=== PATIENT | male | born 1970 | race Caucasian/White ===

== ENCOUNTER 2023-06-16 10:45 | Outpatient (AMB) | payer MEDICARE, MEDICAID, SELFPAY ==
[2023-06-16 11:25] VITALS: BMI 21.2
--- NOTE | 2023-06-16 11:25 | MHC.AMNUTRGE ---
Intake VS Expanded 06/16/23 11:25 06/22/23 08:45 Height 5 ft 2 in 5 ft 2 in Weight 116 lb BMI 21.2 Intake Visit Reasons: Dysphagia Allergies honeydew Adverse Reaction (Unknown, Verified 06/21/23 22:23) Rash lactose intolerant Adverse Reaction (Unknown, Uncoded 06/21/23 22:23) Diarrhea HPI Nutrition Presentation Details Pt presents for initial nutrition consult for dysphagia with feedings orally and supplementing via G-Tube. The Pt was referred by Dr. Maine Bajwa from [facility] , in [place]. Pt is accompanied by staff from [facility]. Pt has Cerebral Palsy, congenital quadriplegia, non verbal. Current diet: pureed with pudding thick liquids by teaspoon and tube feeding via G-tube as follow: To receive 250 ml Nutren 1.5 if 75% or less is consumed at each meal if weight is less than 110 lbs If weight is 110 lbs or more, to receive 250 ml Nutren 1.5 if 50% or less consumed at each meal. Staff reports Pt was getting 250 ml Nutren by bolus via g tube overnight however this was discontinued since Pt had reached over 120 lbs as per recommendations from previous provider. Fluids: Pt is getting 50 ml of fluid before and after nutrent 1.5 supplements via G-tube Pt is getting 640 ml water bolus four times daily via Gtube at 12 AM ,8 am, 2 pm, 6 pm Staff reports patient is eating a variety of foods, pureed with pudding thick liquids. Per staff Pt consumption of pureed foods varies from less than 50-75 %, Pt may have 250 ml of nutren 1.5 - 2-4 times a day (calories from Nutren 1.5 range from 750-1500/d). Pt's most recent weight at 116.4 lbs (on 06/11/23), 117 lbs on 06/04/23, no wt available from Mar/Apr (due to scale repairs), wt in the month of February between 129-130 lbs ( see weight chart from [facility] scanned ) Denies vomiting Pt may have loose stools 1-2 times/week. Pt has lactose intolerance Staff reports Pt's Ht is 5'2 NOT 6'2 as recorded in paper record Nutrition Needs Calculation Weight 116 lb ((53 kg)) Estimated kcal needs (kcal/day) 1,325 (as per 25-30 kcal/kg bw ( 2480-0301)) Estimated protein needs (gm/day) 53 (1g/kg bw) Estimated fluid needs (mls/day) 2,160 (as per Hallie Allen) Most Recent Diabetes Results: No Data to Display Assessment & Plan Assessment & Plan (1) Dysphagia: Comment: Pt having pureed with pudding thick liquids and supplementing with Nutren 1.5 via G -tube Code(s): R13.10 - Dysphagia, unspecified Plan: Provide lactose free puree foods and pudding thick liquids by spoons orally as established. Continue recommendations of feedings via G- tube as established: To receive 250 ml bolus of Nutren 1.5 if 75% or less is consumed at each meal if weight is less than 110 lbs If weight is 110 lbs or more, to receive 250 ml Nutren 1.5 if 50% or less consumed at each meal. Fluids: Provide 50 ml water flush before and after feedings via G-tube as established NOTE: Recommend reducing WATER BOLUS as follows: provide 460 ml water bolus 4 times a day CHECK urine frequency and color to assess fluid volume prescribed CHECK RESIDUAL after g tube feeding , delay feeding if gastric residual is greater than 200 ml MONITOR for diarrhea/loose stools. May need to switch to continuos feeding instead of bolus feeding if Pt is having loose stools /diarrhea after feedings or may need to switch to a fiber containing formula if having more than 3 episodes of diarrhea per week. Please Patient Instructions: Provide lactose free puree foods and pudding thick liquids by spoons orally as established. Continue recommendations of feedings via G- tube as established: To receive 250 ml bolus of Nutren 1.5 if 75% or less is consumed at each meal if weight is less than 110 lbs If weight is 110 lbs or more, to receive 250 ml Nutren 1.5 if 50% or less consumed at each meal. Fluids: Provide 50 ml water flush before and after feedings via G-tube as established NOTE: Recommend reducing WATER BOLUS as follows: provide 310 ml water bolus 6 times a day CHECK urine frequency and color to assess fluid volume prescribed and to monitor weight twice a week to assess changes in hydration CHECK RESIDUAL after g tube feeding , delay feeding if gastric residual is greater than 200 ml MONITOR for diarrhea/loose stools. May need to switch to continuos feeding instead of bolus feeding if Pt is having loose stools /diarrhea after feedings via G-Tube or may need to switch to a fiber containing formula if having more than 3 episodes of diarrhea per week. follow up in 2 weeks Coding Level of Care Code Nutr Indiv Intake (03017) Diagnoses Dysphagia R13.10 Time Spent (min) 40
== END 2023-06-16 12:04 | disposition home or self-care (01) ==
PROVIDERS: PCP Family Medicine; Visit Provider Dietitian, Registered
DX: R13.10 Dysphagia, unspecified (principal)

== ENCOUNTER → 2023-06-16 10:45 | Outpatient (BNVA) | payer MEDICARE, MEDICAID, SELFPAY | PROVIDERS: PCP Family Medicine; Visit Provider Dietitian, Registered | DX: R13.10 Dysphagia, unspecified (principal) | CPT/HCPCS: 97802 ==

== ENCOUNTER 2023-07-25 09:35 | Outpatient (AMB) | payer MEDICARE, MEDICAID, SELFPAY ==
--- NOTE | 2023-07-25 09:46 | MHC.AMNUTRGE ---
Intake VS Expanded 07/25/23 10:51 Height 5 ft 2 in Weight 117 lb BMI 21.4 Comment stated weight Intake Visit Reasons: f/u appt regarding Tube feeding Allergies honeydew Adverse Reaction (Unknown, Verified 06/21/23 22:23) Rash lactose intolerant Adverse Reaction (Unknown, Uncoded 06/21/23 22:23) Diarrhea HPI Nutrition Presentation Details Pt presents for MNT f/u for Dysphagia. Pt presents with staff from [facility]. The Pt was referred by Dr. Maine Bajwa from [facility] , in [place]. Pt has Cerebral Palsy, congenital quadriplegia and is non verbal. Pt is getting his feedings orally with pudding thick liquid consistency and supplementing via G-Tube with Nutrent 1.5. Current diet: pureed with pudding thick liquids by teaspoon and tube feeding via G-tube as follow: To receive 250 ml Nutren 1.5 if 75% or less is consumed at each meal if weight is less than 110 lbs If weight is 110 lbs or more, to receive 250 ml Nutren 1.5 if 50% or less consumed at each meal. Staff reports weight was 117 lbs last week, he is maintaining weight. Staff reports Pt consumes 100% of breakfast meal (oatmeal or pancakes or cereal with lactose free milk, lunch consumes >50 % (mashed potatoes, ground meat with gravy, ensure plus) and dinner varies, consumes 25-75% of the meal. Staff reports he is getting ensure plus with thicken added for pudding thick consistency , with each meal Staff reports , Pt has not had diarrhea or loose stools this week, reports he is doing well, no questions or concerns expressed no complains of diarrhea or loose stools, no vomiting Pt is getting ensure plus with fiber three times a day, one with each meal , stafff reports tolerating it well Most Recent Diabetes Results: No Data to Display Assessment & Plan Assessment & Plan (1) Dysphagia: Comment: Pt having pureed with pudding thick liquids and supplementing with Nutren 1.5 via G -tube Code(s): R13.10 - Dysphagia, unspecified Plan: NUTRITION RECOMMENDATION Based on 116 lbs est kcal needs as per 25-30 kcal/kg bw: 6472-2404 est protein needs as per 1 g/kg bw: 53 g est fluid needs as per Tamra - Segar - Ht : 5'2 : 2160 ml/d Provide lactose free puree foods and pudding thick liquids by teaspoons orally as established. Including pureed protein foods - see list of meal ideas Recommend continuing ensure plus with fiber with pudding thick consistency with each meal to promote oral feeding and prevention of weight loss (this provides 48 g protein, 9 g fiber, 1050 delvin) Continue recommendations of feedings via G- tube as established: To receive 250 ml bolus of Nutren 1.5 if 75% or less is consumed at each meal if weight is less than 110 lbs If weight is 110 lbs or more, to receive 250 ml Nutren 1.5 if 50% or less consumed at each meal. Fluids: Provide 50 ml water flush before and after feedings via G-tube as established NOTE: Recommend reducing WATER BOLUS as follows: provide 310 ml water bolus 6 times a day CHECK urine frequency and color to assess fluid volume prescribed CHECK RESIDUAL after g tube feeding , delay feeding if gastric residual is greater than 200 ml MONITOR for diarrhea/loose stools. May need to switch to continuos feeding instead of bolus feeding if Pt is having loose stools /diarrhea after feedings or may need to switch to a fiber containing formula if having more than 3 episodes of diarrhea per week. Recommend prescription for Ensure plus with fiber to have one with each meal with thickened added for pudding thick consistency and provide by teaspoon to promote oral feeding and prevention of weight loss. Each can provides 350 calories, 3 g of fiber, 16 g of protein Patient Instructions: Recommend reducing water bolus to 310 ml 6 times day. Check urine frequency and color of urine to assess fluid volume, monitor weight to assess changes in hydration. Recommend continuing oral nutritional supplements with pudding thick consistency to be provided by teaspoon to promote oral feeding and prevention of weight loss. Recommend prescribing ensure plus with fiber, one with each meal . Coding Level of Care Code Nutr Indiv Subseq (49005) Diagnoses Dysphagia R13.10 Time Spent (min) 30
[2023-07-25 10:51] VITALS: BMI 21.4
== END 2023-07-25 10:24 | disposition home or self-care (01) ==
PROVIDERS: PCP Family Medicine; Visit Provider Dietitian, Registered
DX: R13.10 Dysphagia, unspecified (principal)

== ENCOUNTER → 2023-07-25 09:35 | Outpatient (BNVA) | payer MEDICARE, MEDICAID, SELFPAY | PROVIDERS: PCP Family Medicine; Visit Provider Dietitian, Registered | DX: R13.10 Dysphagia, unspecified (principal); Z93.1 Gastrostomy status; Z71.3 Dietary counseling and surveillance | CPT/HCPCS: 97803 ==

== ENCOUNTER 2023-10-24 09:46 | Outpatient (AMB) | payer MEDICARE, MEDICAID, SELFPAY ==
--- NOTE | 2023-10-24 09:55 | A.OFFVIS_ITS ---
Intake VS Expanded 10/24/23 10:44 Height 5 ft 2 in Weight 117 lb BMI 21.4 Intake Visit Reasons: Dysphagia/CONFIRMED Allergies honeydew Adverse Reaction (Unknown, Verified 06/21/23 22:23) Rash oxycodone Adverse Reaction (Unknown, Verified 10/24/23 10:16) unknown lactose intolerant Adverse Reaction (Unknown, Uncoded 06/21/23 22:23) Diarrhea vitamin A Adverse Reaction (Unknown, Uncoded 10/24/23 10:16) unknown keflex Adverse Reaction (Uncoded 10/24/23 10:16) unknown succinylcholine chloride Adverse Reaction (Uncoded 10/24/23 10:16) Unknown Medication List - Last Reconciled 10/25/[address], LDN ascorbic acid (vitamin C) 500 mg feeding tube TID bisacodyl (Dulcolax (bisacodyl)) 5 mg PO BEDTIME calcium carbonate (Oyster Shell Calcium) 500 mg PO DAILY diltiazem HCl (Cardizem) 120 mg PO TID docusate sodium (Colace) 100 mg PO DAILY ergocalciferol (vitamin D2) 40 mcg feeding tube DAILY Lactobacillus rhamnosus GG (Culturelle) 1 cap PO BID levetiracetam 2,500 mg PO Q12H levothyroxine (Levoxyl) 75 mcg PO DAILY magnesium oxide 400 mg PO DAILY menthol-zinc oxide 0.44-20.6 % (Calmoseptine) 1 appl topical QID PRN methenamine hippurate (Hiprex) 0.5 grams PO TID mineral oil (Fleet Mineral Oil enema) 118 mL AL DAILY PRN multivitamin with minerals 1 cap PO DAILY omeprazole 20 mg PO BID potassium chloride 40 mEq PO BID testosterone cypionate (Depo-Testosterone) 200 mg IM Q4W valproic acid 550 mg PO TID HPI Nutrition Presentation Details Pt presents for MNT follow up for dysphagia with oral feedings and supplementing via G-Tube. The Pt sees Dr. Maine Story from [facility] in [place]. Pt is accompanied by staff from [facility]. Pt hx: Pt has Cerebral Palsy, congenital quadriplegia, non verbal. Current diet: oral feed: pureed with pudding thick liquids by teaspoon and Nutren 1.5 via G-tube as follow: For weight 110 lbs or more, to receive 250 ml Nutren 1.5 if 50% or less consumed at each meal. In addition, Pt is getting 120 ml Nutren 1.5 by bolus via G-Tube overnight positioned at 45 degree angle. Overnights feeds may be discontinued if weight exceeds 120 lbs. Residuals are checked before starting overnight feeds. Feed is hold if residuals is 200 ml or more, residuals are rechecked an hour after. Feed is started when residual is 159 ml or less. Fluids: Pt is getting 50 ml of fluid before and after nutrent 1.5 supplements via G-tube Pt is getting 310 ml water bolus six times daily via Gtube at 12 AM ,8 am, 2 pm, 6 pm, 8pm, 10 pm Staff reports, to her knowledge, Pt has no diarrhea, no vomiting, no skin breakdown. Pt consuming 100% of breakfast (typically pancakes and sausage or hot cereals with lactose free milk , gets ensure plus with breakfast lunch and dinner meal varies, consuming about 25-50% of the meal and supple mented with nutren 1.5 Pt receiving 1/2 can of nutren 1.5 at night Pt on MVI with minerals, vitamin C three times a day, magnesium oxide, klor-con , senna gen via Gtube fax # [phone] (attention Isa ) no labs at the time of this appointment Most Recent Diabetes Results: No Data to Display Assessment & Plan Assessment & Plan (1) Dysphagia: Comment: Pt having pureed with pudding thick liquids and supplementing with Nutren 1.5 via G -tube Code(s): R13.10 - Dysphagia, unspecified Plan: Pt with consistent weight , appears to tolerate nutrition well since last visit, no concerns expressed at this time by staff NUTRITION RECOMMENDATION Based on 116-117 lbs est kcal needs as per 25-30 kcal/kg bw: 1250-2939 est protein needs as per 1 g/kg bw: 53 g est fluid needs as per Tamra - Alejandro - Ht : 5'2 : 2160 ml/d Continue lactose free puree foods and pudding thick liquids by teaspoons orally as established following healthy plate method. Continue supplementing with Nutren 1.5 by bolus via Gtube as established : If weight is 110 lbs or more, to receive 250 ml Nutren 1.5 if 50% or less consumed at each meal. In addition, continue providing 120 to 250ml of Nutren 1.5 ( 1/2 can to 1 can ) by bolus via G-Tube overnight positioned at 45 degree angle to prevent weight loss. Overnights feeds may be discontinued if weight exceeds 120 lbs. Continue checking Residuals before starting overnight feeds. Hold feeds if residual is 200 ml or more, recheck an hour after and re start feed when residual is 160 ml or less. Contact the doctor for further instructions if residuals are greater than 500 ml. Fluids: Provide 50 ml water flush before and after feedings via G-tube as established Continue WATER BOLUS as follows: provide 310 ml water bolus 6 times a day CHECK urine frequency and color to assess fluid volume prescribed and tolerance CHECK RESIDUAL after g tube feeding , delay feeding if gastric residual is greater than 200 ml, re check residuals in one hour and resume feeding when residual is less than 160 ml. Contact the doctor for further instructions if residuals are greater than 500ml. MONITOR for diarrhea/loose stools. May need to switch to continuos feeding instead of bolus feeding if Pt is having loose stools /diarrhea after feedings or may need to consider switching to a fiber containing formula if having more than 3 episodes of diarrhea per week. Continue Ensure plus with fiber once to twice a day to have with a meal or as a snack with thickened added for pudding thick consistency and provide by teaspoon to promote oral feeding and prevention of weight loss. Each can provides 350 calories, 3 g of fiber, 16 g of protein Patient Instructions: Continue as established, see plan above. Call for questions prior to next follow up. Coding Level of Care Code Nutr Indiv Subseq (06985) Diagnoses Dysphagia R13.10 Time Spent (min) 25
[2023-10-24 10:44] VITALS: BMI 21.4
== END 2023-10-24 10:13 | disposition home or self-care (01) ==
PROVIDERS: PCP Family Medicine; Visit Provider Dietitian, Registered
DX: R13.10 Dysphagia, unspecified (principal)

== ENCOUNTER → 2023-10-24 09:46 | Outpatient (BNVA) | payer MEDICARE, MEDICAID, SELFPAY | PROVIDERS: PCP Family Medicine; Visit Provider Dietitian, Registered | DX: R13.10 Dysphagia, unspecified (principal) | CPT/HCPCS: 97803 ==

== ENCOUNTER → 2024-04-24 09:59 | Outpatient (BNVA) | payer MEDICARE, MEDICAID, SELFPAY | PROVIDERS: PCP Family Medicine; Visit Provider Dietitian, Registered ==

== ENCOUNTER 2024-10-25 09:35 | Outpatient (AMB) | payer MEDICARE, MEDICAID, SELFPAY ==
--- NOTE | 2024-10-25 10:04 | MHC.AMNUTRGE ---
VS Expanded 10/25/24 10:29 Height 5 ft 2 in Weight 117 lb BMI 21.4 Intake Visit Reasons: dysphagia Allergies honeydew Adverse Reaction (Unknown, Verified 06/21/23 22:23) Rash oxycodone Adverse Reaction (Unknown, Verified 10/24/23 10:16) unknown lactose intolerant Adverse Reaction (Unknown, Uncoded 06/21/23 22:23) Diarrhea vitamin A Adverse Reaction (Unknown, Uncoded 10/24/23 10:16) unknown keflex Adverse Reaction (Uncoded 10/24/23 10:16) unknown succinylcholine chloride Adverse Reaction (Uncoded 10/24/23 10:16) Unknown Nutrition Presentation Details: Pt presents for MNT follow up for dysphagia with oral feedings and supplementing via G-Tube. The Pt sees Dr. Maine Story from [facility] in [place]. Pt is accompanied by nurse staff, Lakeisha who is here to review nutrition recommendation and hydration recommendations Pt hx: Pt has Cerebral Palsy, congenital quadriplegia, non verbal. Pt's current wt at 117 lbs Current diet: oral feed: pureed with pudding thick liquids by teaspoon and Nutren 1.5 via G-tube as follow: For weight 110 lbs or more, to receive 250 ml Nutren 1.5 if 50% or less consumed at each meal. In addition, Pt is getting 120 ml Nutren 1.5 by bolus via G-Tube overnight positioned at 45 degree angle. Overnights feeds may be discontinued if weight exceeds 120 lbs. PER STAFF, Pt is consuming 75 % of meals ( 3 meals/d) and is also getting Ensure Plus twice a day with meals with 100% consumption of the ensure plus. Pt receiving 1/2 can of nutren 1.5 at night , and may have one can of nutren 1.5 a couple of times in the week if consuming less than 50% of the meal. Current Fluids as per record brought today 240 ml water for potassium (takes bid) 1860 ml water bolus (465ml QID) [id number] pm 50 ml water flushes via gtube pre post meals if consuming less than 50% of the meal 150-250 m water mixed with meds 0-558 ml water if having nutren 1.5 Water intake may vary from 3043-4181ml during the day plus water in his pureed meals Staff reports, to her knowledge, Pt has no diarrhea, no vomiting, no skin breakdown. Pt has appt with PCP this afternoon. BS Monitoring Most Recent Diabetes Results: No Data to Display Assessment & Plan Assessment & Plan (1) Dysphagia: Comment: Pt having pureed with pudding thick liquids and supplementing with Nutren 1.5 via G -tube Code(s): R13.10 - Dysphagia, unspecified Category: Medical Plan: NUTRITION RECOMMENDATION Based on 116-117 lbs est kcal needs as per 25-30 kcal/kg bw: 8617-6647 est protein needs as per 1 g/kg bw: 53 g est fluid needs as per [place] - Alejandro - Ht : 5'2 : 2160 ml/d - Monitor weight weekly , notify dietitian if weight is less than 110 lbs for further nutrition recommendations -Continue Ensure Plus twice a day with the meals , pureed and pudding thick liquids (Ensure will provide 700 calories and 32 g protein, no fiber, 366 ml water) -Continue 250 ml (1can) nutren 1.5 by bolus via Gtube at night , Flush with 50 ml of water before and after feeding via Gtube (this will provide 380 calories, 17 g protein, NO fiber, and total of 290 ml water) RECOMMEND WATER/day (to be used for meds/flushes/bolus): 1500 ml /day CHECK urine frequency and color to assess fluid and tolerance MONITOR for constipation /diarrhea/loose stools May recommend fiber supplement, 3-6 g fiber per day. The nutritional supplements do not have fiber in them. Continue checking Residuals before starting overnight feeds. Hold feeds if residual is 200 ml or more, recheck an hour after and re start feed when residual is 160 ml or less. Contact the doctor for further instructions if residuals are greater than 500 ml. follow up in 2 weeks Telephone visit, and call sooner for any questions Coding Level of Care Code Nutr Indiv Subseq (01777) Diagnoses Dysphagia R13.10 Time Spent (min) 30
[2024-10-25 10:29] VITALS: BMI 21.4
--- OUTSIDE RECORDS SUMMARY | 2024-10-25 10:48 | XMS_ITS | Continuity of Care Document ---
Author Organization [facility] ter Address [address] [place] [id number]- Care Team Providers Care Restaurant Kitchen Manager Name Role Phone Maine Bajwa MD [id number] 10/01/24 - 10/01/[address] [address] Discharge Disposition: A-D/C Home Attending Physician: Omar Baker MD Admitting Physician: Omar Baker MD Referring Physician: Maine Bajwa MD Encounter Type: Disch Daystay Allergies, Adverse Reactions, Alerts Substance Criticality Severity Reaction Reaction Severity Status succinylcholine Acti ve Keflex Active Aquasol A Active Other Food Allergy Honey Dew A ctive Lactose Active oxyCODONE Active Immunizations Given and Recorded Vaccine Date Status Refusal Reason [id number] bivalent booster vax 07/12/22 Recorded SARS-CoV-2 (COVID-19) mRNA-1273 vaccine 08/24/21 R ecorded SARS-CoV-2 (COVID-19) mRNA-1273 vaccine 10/19/20 R ecorded SARS-CoV-2 (COVID-19) mRNA-1273 vaccine 09/21/20 R ecorded Medications Acetaminophen = 650 mg, G Tube, Every 4 hours, PRN as needed for fever, 0 Refills, Maintenance, 02/08/23 6:23:00 PM EDT, Partial fill upon patient request if the prescription is for a schedule II opioid drug. Start Date: 02/08/23 Status: Ordered Repeat number: 1 bisacodyl 5 mg oral delayed release tablet See Instructions, PRN as needed for constipation, 1 tablet Daily thr g tube every other day. hold for loose stools, 0 Refills, Maintenance, 12/07/22 12:00:00 AM EDT, CR Tablet, Partial fill upon patient request if the prescription is for a schedule II opioid drug. Start Date: 12/07/22 Status: Ordered Repeat number: 1 Chlorpheniramine Tablet 4 mg, G Tube, Every 8 hours, PRN, Allergy Symptoms, Refills 0, Maintenance, Other, 02/08/23 6:25:00 PM EDT, Partial fill upon patient request if the prescription is for a schedule II opioid drug. Start Date: 02/08/23 Status: Ordered Repeat number: 1 Culturelle Capsule 1 capsule, G Tube, 2 times a day, 0 Refills, Maintenance, 12/06/22 11:58:00 PM EDT, Partial fill upon patient request if the prescription is for a schedule II opioid drug. Start Date: 12/06/22 Status: Ordered Repeat number: 1 diazePAM 5 mg/5 mL oral solution 5 mL = 5 mg, G Tube, Daily, PRN Seizure Activity, 0 Refills, Maintenance, 02/08/23 6:27:00 PM EDT, Solution, Partial fill upon patient request if the prescription is for a schedule II opioid drug. Start Date: 02/08/23 Status: Ordered Repeat number: 1 dilTIAZem 120 mg oral tablet 1 tablet = 120 mg, G Tube, 3 times a day, # 270 tablet, 0 Refills, Maintenance, 12/06/22 11:57:00 PMEDT, Tablet, Partial fill upon patient request if the prescription is for a schedule II opioid drug. Start Date: 12/06/22 Status: Ordered Quantity: 270.0 Unit: tablet Repeat number: 1 Disposable Enema 7 g-19 g rectal enema 1 each, Rectally, Every week, on saturdays. hold for loose stools, # 118 mL, 0 Refills, Maintenance, 12/07/22 12:01:00 AM EDT, Enema, Partial fill upon patient request if the prescription is for a schedule II opioid drug. Start Date: 12/07/22 Status: Ordered Quantity: 118.0 Unit: mL Repeat number: 1 docusate sodium 100 mg oral capsule 1 capsule = 100 mg, G Tube, 2 times a day, hold for loose stools, # 20 capsule, 0 Refills, Maintenance, 12/06/22 11:59:00 PM EDT, Capsule, Partial fill upon patient request if the prescription is for a schedule II opioid drug. Start Date: 12/06/22 Status: Ordered Quantity: 20.0 Unit: capsule Repeat number: 1 ergocalciferol 8000 iu/ml oral solution 8 drops, G Tube, Daily, # 60 mL, 0 Refills, Maintenance, 02/08/23 6:28:00 PM EDT, Solution, Partial fill upon patient request if the prescription is for a schedule II opioid drug. Start Date: 02/08/23 Status: Ordered Quantity: 60.0 Unit: mL Repeat number: 1 levETIRAcetam 100 mg/mL oral solution = 2,500 mg, G Tube, Every 12 hours, 2500mg via g tube, # 300 mL, 0 Refills, Maintenance, 12/07/22 12:04:00 AM EDT, Solution, Partial fill upon patient request if the prescription is for a schedule II opioid drug. Start Date: 12/07/22 Status: Ordered Quantity: 300.0 Unit: mL Repeat number: 1 levothyroxine 75 mcg (0.075 mg) oral tablet 1 tablet = 75 mcg, G Tube, Daily, # 30 tablet, 0 Refills, Maintenance, 12/07/22 12:05:00 AM EDT, Tablet, Partial fill upon patient request if the prescription is for a schedule II opioid drug. Start Date: 12/07/22 Status: Ordered Quantity: 30.0 Unit: tablet Repeat number: 1 magnesium oxide 400 mg oral tablet 1 tablet = 400 mg, G Tube, Daily, # 10 tablet, 0 Refills, Maintenance, 12/07/22 12:05:00 AM EDT, Tablet, Partial fill upon patient request if the prescription is for a schedule II opioid drug. Start Date: 12/07/22 Stop Date: 12/17/22 Status: Ordered Quantity: 10.0 Unit: tablet Repeat number: 1 methenamine hippurate 1 gm oral tablet 0.5 tablet = 0.5 Gm, G Tube, 3 times a day, # 10 tablet, 0 Refills, Maintenance, 12/07/22 12:05:00 AM EDT, Tablet, Partial fill upon patient request if the prescription is for a schedule II opioid drug. Start Date: 12/07/22 Stop Date: 12/12/22 Status: Ordered Quantity: 10.0 Unit: tablet Repeat number: 1 MiraLax oral powder for reconstitution = 17 Gm, G Tube, dissolve in water before taking. take every 3rd day, # 255 Gm, 0 Refills, Maintenance, 12/07/22 12:07:00 AM EDT, REC Powder, Partial fill upon patient request if the prescription is for a schedule II opioid drug. Start Date: 12/07/22 Status: Ordered Quantity: 255.0 Unit: g Repeat number: 1 multivitamin with minerals Multiple Vitamins with Minerals oral tablet 1 tablet, G Tube, Daily, # 30 tablet, 0 Refills, Maintenance, 12/07/22 12:06:00 AM EDT, Tablet, Partial fill upon patient request if the prescription is for a schedule II opioid drug. Start Date: 12/07/22 Status: Ordered Quantity: 30.0 Unit: tablet Repeat number: 1 omeprazole 2 mg/mL oral suspension = 20 mg, G Tube, Daily, # 37.5 mL, 0 Refills, Maintenance, 12/07/22 12:09:00 AM EDT, Suspension, Partial fill upon patient request if the prescription is for a schedule II opioid drug. Start Date: 12/07/22 Status: Ordered Quantity: 37.5 Unit: mL Repeat number: 1 Oyster Lorenzo 1250 mg (500 mg elemental calcium) oral tablet 1 tablet = 1,250 mg, G Tube, Daily, # 160 tablet, 0 Refills, Maintenance, 12/07/22 12:08:00 AM EDT, Tablet, Partial fill upon patient request if the prescription is for a schedule II opioid drug. Start Date: 12/07/22 Status: Ordered Quantity: 160.0 Unit: tablet Repeat number: 1 potassium chloride 20 mEq/15 mL oral liquid 30 mL = 40 mEq, G Tube, 2 times a day, 0 Refills, Maintenance, 03/27/24 10:15:00 AM EDT, Partial fill upon patient request if the prescription is for a schedule II opioid drug. Start Date: 03/27/24 Status: Ordered Repeat number: 1 Senna 8.6 mg oral tablet 17.2 mg, 2, tablet, G Tube, Daily at bedtime, Refills 0, Maintenance, 12/07/22 12:11:00 AM EDT, Partial fill upon patient request if the prescription is for a schedule II opioid drug. Start Date: 12/07/22 Status: Ordered Repeat number: 1 Testosterone = 44 mg, Intramuscular, Every 7 days, 0 Refills, Maintenance, 12/07/22 12:13:00 AM EDT, Partial fillupon patient request if the prescription is for a schedule II opioid drug. Start Date: 12/07/22 Status: Ordered Repeat number: 1 Valproic Acid Liquid = 550 mg, G Tube, 3 times a day, 0 Refills, Maintenance, 12/07/22 12:11:00 AM EDT, Syrup, Partial fill upon patient request if the prescription is for a schedule II opioid drug. Start Date: 12/07/22 Status: Ordered Repeat number: 1 Vitamin C 500 mg oral tablet 1 tablet = 500 mg, G Tube, Daily, # 30 tablet, 0 Refills, Maintenance, 12/07/22 12:12:00 AM EDT, Tablet, Partial fill upon patient request if the prescription is for a schedule II opioid drug. Start Date: 12/07/22 Status: Ordered Quantity: 30.0 Unit: tablet Repeat number: 1 Problem List Condition Confirmation Course Effective Dates Status H ealth Status Informant Cerebral palsy Confirmed Active Congenital diplegia Confirmed Active COVID-19 1 Confirmed 01/03/24 Active Dependence on wheelchair Confirmed Active Developmental delay Confirmed Active Dysphagia Confirmed Active History of gastrostomy tube placement Confirmed Active Hypertension Confirmed Active Hypokalemia Confirmed Active Hypomagnesemia Confirmed Active Hypothyroidism Confirmed Active Nonverbal learning disorder Confirmed Active Osteoporosis Confirmed Active Seizure disorder Confirmed Active 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 Vitamin [id number] megaloblastic anemia Confirmed Active 1Problem added by Discern Expert Results Radiology Reports * Exam Date Time Procedure Performing Provider Status 10/01/24 11:58 AM IR End of Case Report Aut h (Verified) IR End of Case Report * Exam Date Time Procedure Performing Provider Status 10/01/24 11:58 AM IR Replace G Tube or Cecostomy Tube Auth (Verified) Notes: (IR Replace G Tube or Cecostomy Tube) Reason For Exam: g tube change;Other: IR Replace G Tube or Cecostomy Tube Patient: CLAUDE TAYLOR Study Date: 10/01/2024 Performing: Radha Oro PA-C Referring: : 1970 Age: 54 Gender: MALE Pre-procedure diagnosis and Indication: Dysphagia, g tube dependent. Presents for gastrostomy change, however, it appears tube has been changed in ED 3-4 weeks ago. No issues with tube per nursing staff. Unsure of why he was brought in from facility he lives at if his procedure had just been done. Tube appears to be in good condition. Will do gastrogram to make sure it is in correct position. Exam: Prior to the procedure, the patient was seen and the nature of the procedure explained along with its attendant risks and benefits to general consent for continuation of care . Informed consent was obtained from, general consent for continuation of care . PROCEDURE: The patient was positioned supine and secured with arm boards, safety straps. payable representative image obtained. Iodinated contrast was injected into G tube showing unremarkable gastrogram, with tube adequately placed in stomach. No leaking of contrast. A clean work area was maintained throughout the procedure and patient tolerated the procedure well with no complications of the procedure estimated blood loss was minimal Specimens/samples: no specimens or samples were sent for this procedure Patient transferred to, Pre / Post Procedure Unit Impression: Correctly placed gastrostomy tube which appears to be functioning well. Will plan to see him at his next appointment in approximately 3 months. Fluoroscopy time and dose Total Fluoro Time: 0.1 mins Total dose 1 mGy Total DAP 7.73 - ?Gy/m2 Contrast used Contrast used: [id number] 10 Signed By Radha Oro PA-C On 10/01/2024 12:46:02 PM Radha Oro PA-C, George MD Dictated By: Radha Polanco Dictated Date/Time: 10/01/24 11:58 a Reviewed By: Radha Polanco Signed By: Radha Polanco Signed Date/Time: 10/01/24 11:58 am Transcribed By: CARLOS A Transcribed Date/Time: 10/01/24 11:58 am Vital Signs Most recent to oldest [Reference Range]: 1 Oxygen Saturation [94-100 %] 97 % (10/01/24 10:34 AM) Pulse Rate [55-90 bpm] 55 bpm (10/01/24 10:34 AM) Blood Pressure [90-138/55-84 mm Hg] 144/ 100mm Hg *H* (10/01/24 10:34 AM) Respiratory Rate [16-30 br/min] 20 br/mi n (10/01/24 10:34 AM) Temperature [96.8-100.4 DegF] 96.8 DegF (10/01/24 10:34 AM) Mode of Delivery (Oxygen) Room air (10/01/24 10:34 AM) Blood pressure sites Arm, left (10/01/24 10:34 AM) Temperature Route Temporal (10/01/24 10:34 AM) Social History Social History Type Response Smoking Status Never smoker entered on: 04/17/16 Sex Male Sex Representation Male (finding) Hospital Progress note * Joe Lanza RN: SIGN Joe Lanza RN: SIGN, MODIFY Joe Lanza RN: MODIFY, SIGN, VERIFY Event Display: Progress Note Hospital Authored Date: Patient: CLAUDE TAYLOR Age: 54 years Sex: Male : 1970 Associated Diagnoses: None Author: Vivi Schroeder RN Findings Narrative/Incidental Tube change patient arrived on unit [id number] am VSS npo status confirmed LMX cream applied. Call bellwithin reach. * Joe Lanza RN: PERFORM Event Display: Progress Note Hospital Authored Date: Returned from procedure. VSS. No procedure done. Patient discharged from unit via wheelchair. Note * Joe Lanza RN: PERFORM Event Display: Discharge/Transfer Note Hospital Authored Date: Nursing Discharge Note Entered On: 10/01/2024 12:40 EST Performed On: 10/01/2024 12:40 EST by Joe Lanza RN Nursing Discharge Note 2 Discharge Time : 10/01/2024 12:40 EST Discharge Level of Care at Discharge : Home/Snf/Foster Care Patient Left Unit Via : Wheelchair Patient Accompanied Off Unit with : Responsible adult DC Instructions Provided & Signed by Pt : Yes Patient Understands D/C Instructions : Yes Patient Instructions Discharge Signed : Yes Did Pt have Specialty Bed or Wound Vac : No Pool CAMPO Joe - 10/01/2024 12:40 EST Patient Care team information Care Team Personnel Name: Laila Peters RN Position: [facility] RN Member Role: Primary Care Nurse Name: Tim Isaacs RN Position: [facility] RN Member Role: Primary Care Nurse Name: Diaz Correia RN Position: [facility] RN Member Role: Primary Care Nurse Name: Leda Chacon RN Position: [facility] RN Member Role: Primary Care Nurse Name: Mayra Fuentes RN Position: [facility] RN Member Role: Primary Care Nurse Name: Radha Gan RN Position: [facility] RN Member Role: Primary Care Nurse Name: Maine Bajwa MD Position: [facility] Outreach Member Role: PCP Address: [address] [place] [address] Telecom: Care Team Related Persons Name: RODO TAYLOR Name: HORTENSIA WHELAN LPN Insurance Providers Guarantor name: CLAUDE TAYLOR Health Plan Information #: 2 Payer[facility] [employer] Member Number: [id number] Policy Number: NA Group Number: NA Health Plan Information #: 1 Payer: MEDICARE PART B OUTPT Member Number: [id number] Policy Number: NA Group Number: NA
--- OUTSIDE RECORDS SUMMARY | 2024-10-25 10:48 | XMS_ITS | Data Portability ---
Author Organization [place] - [facility] Address [address] [place] [address] Care Team Providers Care Stock Mixer Name Role Phone CARRIE BURNS Primary Care Provider [phone] [facility] OTHER Assessment Encounter Date Assessment Date Assessment LastModified by Organization Details LastModified Time 07/20/2021 07/20/2021 Proper Personal Protective Equipment (PPE), including gloves, eye protection and masks were donned and doffed appropriately and all equipment cleaned using approved technique with germicidal disposable wipes prior to and after care of this patient according to [facility]'s infection prevention protocols. Overview/History : 51 yo nonverbal male in a senior care is seen for 2 days of bruising to the left ankle of unknown etiology. Exam: pt is nonverbal with ecchymosis over the left lateral malleolus extending distally DDx considered, but not limited to: strain/sprain fx Plan/Discussion: -unable to discern extent of pain given nonverbal aspect of patient -will order xray of the left ankle to r/o fracture -pt will remain non weight bearing until xrays results are in -he is nonweight bearing at baseline using shower bed and wheelchair -instructions left on report sheet with senior care staff -they will call for re-eval if appearance of the ankle worsens In order to obtain further information and compare any laboratory results/values, I have accessed . This information was pertinent in my medical decision making today. [email or web address] Not available 07/20/2021 17:30:16 Plan of Treatment Reminders Order Date Submit Date Provider Last Modified By Organization Details Last Modified Time Details Appointments None recorded. Lab None recorded. Referral None recorded. Procedures None recorded. Surgeries None recorded. Imaging XR, ankle, 3 or more view - call staff @ senior care to schedule @ 2020 [facility] [employer] [facility] [address], [place], [address], 21:19:08 Medication Orders None recorded. Patient TargetsNo targets recorded. Patient Instructions Encounter Date Encounter Id Patient Instructions Last Modified By Organization Details Last Modified Time 07/20/2021 [id number] Thank you for yo ur visit with [facility] today. We cannot always find the exact cause of your symptoms during your initial visit. Please follow up with your primary care provider or specialist to be rechecked or seek medical attention if your symptoms do not go away or get worse. If you develop any new or worsening symptoms and need after hours care, please go to nearest ER and/or call 911. If you have additional concerns or develop a change in your condition between 8am-10pm, please call [facility] at [phone] to help navigate your care. Thank you for your visit with [facility] today. You do not appear to have a fracture or dislocation that requires immediate surgical intervention. However, small breaks or ligament tears may not be obvious on initial examination. Given this concern, we may have placed you in a temporary splint. If an xray is indicated, we will help direct you to the best option to obtain your imaging study. We have also given you follow up directions. Please follow up with your primary care physician or specialist as directed. If you develop any new or worsening symptoms and need after hours care, please go to nearest ER and/or call 911. If you have additional concerns or develop a change in your condition between 8am-10pm, please call [facility] at [phone] to help navigate your care. [email or web address] Not available 07/20/2021 16:48:40 Reason for Referral None Reported. Results Created Date Observation Date Name Description Value Unit Range Abnormal Flag Note LastModifiedBy Organization Detail LastModifiedTime 07/22/20 21 XR, ankle , 3 or more view No observ ation record ed. [id number] [facility] ([facility]) [address], [place], [address], 07/23/2021 12:00:45 Result Notes None recorded. Procedures Surgical History None recorded. Imaging Results Imaging Date Name Status LastModified by Organiz ation Details LastModified Time 07/22/2021 XR, ankle, 3 or more view completed [id number] [facility] Corporate Office ([employer]) [address], [place], [address], 07/23/2021 12:00:45 Procedure Notes None recorded. Medical Equipment None Reported. Allergies Allergen ID Allergen Name Allergen Category Reaction Reaction Severity Criticality Documentation Date Start Date Code Code System Note Provider Name and Address Organization Details Recorded Time 779230 Keflex medicatio n Not available Not available Not available 07/20/2021 [id number] RxLAMBERTO Villalobos [address] [place], [address], [place] [facility] 16:47:02 [id number] succinylc holine Not available Not available Not available Not available 07/20/2021 [id number] RxLAMBERTO Villalobos [address] [place], [address], [place] [facility] 16:47:08 Medications Name Sig Start Date Stop Date Status Note LastModified by Organization Details LastModified Time Milk of Magnesia 400 mg/5 mL oral suspension active Not Available Not Available N ot Available diazepam 5 mg/5 mL (1 mg/mL) oral solution active Not Available Not Availabl e Not Available potassium chloride 20 mEq/15 mL oral liquid active Not Available Not Available Not Available levothyroxine 75 mcg tablet active Not Available Not Availabl e Not Available methenamine hippurate 1 gram tablet active Not Available Not Available Not Available diltiazem 120 mg tablet active Not Available Not Available No t Available valproic acid (as sodium salt) 250 mg/5 mL oral solution active Not Available Not Available Not Available Promethegan 25 mg rectal suppository active Not Available Not Available Not Available lorazepam 1 mg tablet active Not Available Not Available Not Available testosterone cypionate 200 mg/mL intramuscular oil active Not Available Not Available Not Available ibuprofen 600 mg tablet active Not Available Not Available No t Available levetiracetam 100 mg/mL oral solution active Not Available Not Available Not Available Nyamyc 100,000 unit/gram topical powder active Not Available Not Availab le Not Available Vitals Date Recorded Body temperature Respiratory rate Provider Name and Address Organization Details Last Updated DateTime 07/20/2021 98.4 [degF] 22 /min Not Available [facility] 07/20/2021 17:01:27 Social History None recorded. Functional Status None recorded. Mental Status None recorded. Family History Nothing Reported. Medical History No medical history recorded. Past Encounters Encounter ID Performer Location Encounter Start Date Encounter Closed Date Diagnosis/Indication Diagnosis SNOMED-CT Code Diagnosis ICD10 Code Diagnosis Note [id number] LAMBERTO Loya [facility] [address] [place] [address] 07/20/2021 16:45:47 07/27/2021 20:58:56 Contusion of left foot [id number] S90.32XA Health Concerns Section Related Observation LastModified by Organization Detai ls LastModified Time None Recorded Concern Status LastModified by Organization Details LastModified Time None Recorded Advance Directives Directive None Recorded Payers Encounter Date Sequence Insurance Name Policy Number Policy [place] Covered Member ID [place] Member ID Guarantor Name 07/20/2021 1 [place] [employer] Urban Lanier [id number] Urban Lanier 07/20/2021 2 [place] [facility] Urban Lanier [id number] Urban Lanier Notes Date Note Type Note Provider Name and Address Organization Details Recorded Time 07/20/2021 text/html 51 yo male nonverbal in senior care new to provider and to DHstaff gives historythey found his left foot swollen and bruised tuesday ampt does not ambulate, bedbound or wheelchairpt not demonstrating any new behaviors regarding the extremitystaff denies trauma LAMBERTO Loya [address], [place], [address], [place] - [facility] 07/20/2021 17:30:27
== END 2024-10-25 10:08 | disposition home or self-care (01) ==
PROVIDERS: PCP Family Medicine; Visit Provider Dietitian, Registered
DX: R13.10 Dysphagia, unspecified (principal)

== ENCOUNTER → 2024-10-25 09:35 | Outpatient (BNVA) | payer MEDICARE, MEDICAID, SELFPAY | PROVIDERS: PCP Family Medicine; Visit Provider Dietitian, Registered | DX: R13.10 Dysphagia, unspecified (principal) | CPT/HCPCS: 97803 ==

== ENCOUNTER → 2024-11-12 10:30 | Outpatient (BNVA) | payer MEDICARE, MEDICAID, SELFPAY | PROVIDERS: PCP Family Medicine; Visit Provider Dietitian, Registered | DX: R13.10 Dysphagia, unspecified (principal) | CPT/HCPCS: 97803 ==

== ENCOUNTER → 2024-11-20 14:00 | Outpatient (BNVA) | payer MEDICARE, MEDICAID, SELFPAY | PROVIDERS: PCP Family Medicine; Visit Provider Dietitian, Registered | DX: R13.10 Dysphagia, unspecified (principal) | CPT/HCPCS: 97803 ==

== ENCOUNTER 2024-12-27 15:06 | Outpatient (AMB) | payer MEDICARE, MEDICAID, SELFPAY ==
--- NOTE | 2024-12-26 10:41 | A.OFFVIS_ITS ---
VS Expanded 01/01/25 21:30 Height 5 ft 2 in Weight 111 lb 2.1 oz BMI 20.3 Intake Visit Reasons: reg wt progress. Allergies honeydew Adverse Reaction (Unknown, Verified 06/21/23 22:23) Rash oxycodone Adverse Reaction (Unknown, Verified 10/24/23 10:16) unknown lactose intolerant Adverse Reaction (Unknown, Uncoded 06/21/23 22:23) Diarrhea vitamin A Adverse Reaction (Unknown, Uncoded 10/24/23 10:16) unknown keflex Adverse Reaction (Uncoded 10/24/23 10:16) unknown succinylcholine chloride Adverse Reaction (Uncoded 10/24/23 10:16) Unknown Nutrition Presentation Details: Pt presents for MNT via TV Following up on food intake by mouth, supplements and weight changes Staff from skilled nursing answered questions . Pt is non verbal Per staff Pt's appetite is increasing , consuming 80-90% of meals and offering a food alternative by mouth (peanut butter/jelly sand if not eating the meal made at that time. Wt on 12/19/24 at 111.6 lbs, maintaining weight BS Monitoring Most Recent Diabetes Results: No Data to Display Telehealth Telehealth Telehealth Platform: Telephone Location of provider rendering services: practice address Location of patient: address on file Patient Identification confirmed using: Name, : Yes Telehealth method: voice only Patient verbally consented to treatment: Yes Patient verbally consented to billing insurance company: Yes Patient informed of any privacy concerns related to visit: Yes Minutes spent on Phone/Video with Pt.: 20 Assessment & Plan Assessment & Plan (1) Dysphagia: Comment: Pt having pureed , pudding thick consistency meals and liquids, supplementing with Ensure plus orally and with Nutren 1.5 via G -tube Code(s): R13.10 - Dysphagia, unspecified Category: Medical Plan: NUTRITION RECOMMENDATION Based on 116-117 lbs est kcal needs as per 25-30 kcal/kg bw: 0579-4778 est protein needs as per 1 g/kg bw: 53 g est fluid needs as per Tamra - Alejandro - Ht : 5'2 : 2160 ml/d Provide 250ml Nutren 1.5 by bolus via Gtube, at lunch and at dinner if consuming less than 50% of the meal , flush with 50 ml water before and after bolus via Gtube -Continue 250 ml (1carton) nutren 1.5 by bolus via Gtube at bedtime , Flush with 50 ml of water before and after feeding via Gtube (this will provide 380 calories, 17 g protein, NO fiber, and total of 290 ml water) - Monitor weight weekly , notify dietitian if weight is less than 110 lbs for further nutrition recommendations -Continue Ensure Plus twice a day with the meals , pureed and pudding thick liquids (Ensure will provide 700 calories and 32 g protein, 366 ml water) NEW water bolus recommendation (reduce water bolus to 190ml 2 times a day when Pt having 250 ml of nutrent 1.5 at lunch and at dinner : for a total 744 ml /day (PT also receiving 400-500 ml of water with meds via Gtube and water in the meals (juices/broths/milk to puree) CHECK urine frequency and color to assess fluid and tolerance MONITOR for constipation /diarrhea/loose stools Continue checking Residuals before starting overnight feeds. Hold feeds if residual is 200 ml or more, recheck an hour after and re start feed when residual is 160 ml or less. Contact the doctor for further instructions if residuals are greater than 500 ml. f/u in 3months, call prior to the appointment for any questions Coding Level of Care Code Nutr Indiv Subseq (26556) Diagnoses Dysphagia R13.10 Time Spent (min) 20
--- OUTSIDE RECORDS SUMMARY | 2024-12-27 16:59 | XMS_ITS | Data Portability ---
Author Organization [place] [facility] Address [address] [place] [address] Care Team Providers Care Dependency Program Director Name Role Phone CARRIE BURNS Primary Care Provider [facility] OTHER Assessment Encounter Date Assessment Date Assessment LastModified by Organization Details LastModified Time 07/20/2021 07/20/2021 Proper Personal Protective Equipment (PPE), including gloves, eye protection and masks were donned and doffed appropriately and all equipment cleaned using approved technique with germicidal disposable wipes prior to and after care of this patient according to [facility]'s infection prevention protocols. Overview/History : 51 yo nonverbal male in a longterm is seen for 2 days of bruising [...] wheelchair -instructions left on report sheet with longterm staff -they will call for re-eval if appearance of the ankle worsens In order to obtain further information and compare any laboratory results/values, I have accessed . This information was pertinent in my medical decision making today. [email or web address] Not available 07/20/2021 17:30:16 Plan of Treatment Reminders Order Date Submit Date Provider Last Modified By Organization Details Last Modified Time Details Appointments None recorded. Lab None recorded. Referral None recorded. Procedures None recorded. Surgeries None recorded. Imaging XR, ankle, 3 or more view - call staff @ longterm to schedule @ 2020 [facility] [employer]), [address], [place], [address], 21:19:08 Medication Orders None recorded. Patient TargetsNo targets recorded. Patient Instructions Encounter Date Encounter Id Patient Instructions Last Modified By Organization Details Last Modified Time 07/20/2021 [id number] Thank you for yo ur visit with [facility] today. We cannot always find the exact [...] in your condition between 8am-10pm, please call [facility] at [phone] to help navigate your care. Thank you for your visit with [facility] today. You do not appear to have [...] in your condition between 8am-10pm, please call [facility] at [phone] to help navigate your care. [email or web address] Not available 07/20/2021 16:48:40 Reason for Referral None Reported. Results Created Date Observation Date Name Description Value Unit Range Abnormal Flag Note LastModifiedBy Organization Detail LastModifiedTime 07/22/20 21 XR, ankle , 3 or more view No observ ation record ed. [email or web address] [facility] [employer] ([employer]) [address], [place], [address], 07/23/2021 12:00:45 Result Notes None recorded. Procedures Surgical History None recorded. Imaging Results Imaging Date Name Status LastModified by Organiz ation Details LastModified Time 07/22/2021 XR, ankle, 3 or more view completed [email or web address] Formerly [facility] Corporate Office ([employer]) [address] [facility] [address], [place], [address], 07/23/2021 12:00:45 Procedure Notes None recorded. Medical Equipment None Reported. Allergies Allergen ID Allergen Name Allergen Category Reaction Reaction Severity Criticality Documentation Date Start Date Code Code System Note Provider Name and Address Organization Details Recorded Time [id number] Keflex medicatio n Not available Not available Not available 07/20/2021 [id number] RxLAMBERTO Villalobos [address] [place], [address], [place] [facility] 16:47:02 [id number] succinylc holine Not available Not available Not available Not available 07/20/2021 [id number] RxLAMBERTO Villalobos [address] [place], [address], [place] [facility] 16:47:08 [...] SNOMED-CT Code Diagnosis ICD10 Code Diagnosis Note [id number] LAMBERTO Loya [facility] [address] [place] [address] 07/20/2021 16:45:47 07/27/2021 20:58:56 Contusion of left foot [id number] S90.32XA Health Concerns Section Related Observation LastModified by Organization Detai ls LastModified Time None Recorded Concern Status LastModified by Organization Details LastModified Time None Recorded Advance Directives Directive None Recorded Payers Encounter Date Sequence Insurance Name Policy Number Policy [place] Covered Member ID [place] Member ID Guarantor Name 07/20/2021 1 [place] [email or web address] Urban Lanier [id number] Urban Lanier 07/20/2021 2 [place] [facility] Urban Lanier [id number] Urban Lanier Notes Date Note Type Note Provider Name and Address Organization Details Recorded Time 07/20/2021 text/html 51 yo male nonverbal in longterm new to provider and to DHstaff gives historythey found his left foot swollen and bruised tuesday ampt does not ambulate, bedbound or wheelchairpt not demonstrating any new behaviors regarding the extremitystaff denies trauma LAMBERTO Loya [address], [place], [address], [place] [facility] 07/20/2021 17:30:27
[2025-01-01 21:30] VITALS: BMI 20.3
== END 2024-12-27 15:06 | disposition home or self-care (01) ==
LOC: HO.ENCR 15:06
PROVIDERS: PCP Family Medicine; Visit Provider Dietitian, Registered
DX: R13.10 Dysphagia, unspecified (principal)

== ENCOUNTER → 2024-12-27 15:06 | Outpatient (BNVA) | payer MEDICARE, MEDICAID, SELFPAY | PROVIDERS: PCP Family Medicine; Visit Provider Dietitian, Registered | DX: R13.10 Dysphagia, unspecified (principal) | CPT/HCPCS: 97803 ==

== ENCOUNTER 2025-04-04 13:08 | Outpatient (AMB) | payer MEDICARE, MEDICAID, SELFPAY ==
--- NOTE | 2025-04-04 11:04 | MHC.AMNUTRGE ---
Intake Visit Reasons: f/u on wt and food tolerance Allergies honeydew Adverse Reaction (Unknown, Verified 06/21/23 22:23) Rash oxycodone Adverse Reaction (Unknown, Verified 10/24/23 10:16) unknown lactose intolerant Adverse Reaction (Unknown, Uncoded 06/21/23 22:23) Diarrhea vitamin A Adverse Reaction (Unknown, Uncoded 10/24/23 10:16) unknown keflex Adverse Reaction (Uncoded 10/24/23 10:16) unknown succinylcholine chloride Adverse Reaction (Uncoded 10/24/23 10:16) Unknown Nutrition Presentation Details: Nutrition f/u via TV Following up on food intake by mouth, supplements and weight changes Staff from [facility] answered questions . Pt is non verbal. Pt has dysphagia, and currently eating by mouth the majority of the time during the day, consuming 80-100% of the meals by mouth and is getting 250 ml of Nutren 15. by bolus feeding via Gtube at bedtime on a daily basis. Diet is pureed , pudding thick consistency meals and liquids. Also getting Ensure plus orally twice a day (with lunch and dinner). Pt also gets 250 ml Nutren 1.5 via G -tube by bolus if PO is less than 50% of the meals. Has had Nutren 1.5 1-2 times in the past week, appears to enjoy his oral foods Per staff Pt's appetite is good, consuming 80-100% of meals and ensure plus twice a day, Wt on 03/29/25 at 111.4 lbs - continues stable no constipation/diarrhea/vomiting Telehealth Telehealth Telehealth Platform: Telephone Location of provider rendering services: practice address Location of patient: address on file Patient Identification confirmed using: Name, : Yes Telehealth method: voice only Patient verbally consented to treatment: Yes Patient verbally consented to billing insurance company: Yes Patient informed of any privacy concerns related to visit: Yes Minutes spent on Phone/Video with Pt.: 20 Assessment & Plan Assessment & Plan (1) Dysphagia: Comment: Pt having pureed , pudding thick consistency meals and liquids, supplementing with Ensure plus orally and with Nutren 1.5 via G -tube Code(s): R13.10 - Dysphagia, unspecified Category: Medical Plan: NUTRITION RECOMMENDATION Based on 116-117 lbs est kcal needs as per 25-30 kcal/kg bw: 6794-7547 est protein needs as per 1 g/kg bw: 53 g est fluid needs as per Tamra Allen - Ht : 5'2 : 2160 ml/d Continue as establish: Continue Ensure Plus twice a day with the meals , pureed and pudding thick liquids (Ensure will provide 700 calories and 32 g protein, 366 ml water) Provide 250ml Nutren 1.5 by bolus via Gtube, at lunch and at dinner if consuming less than 50% of the meal , flush with 50 ml water before and after bolus via Gtube -Continue 250 ml (1carton) nutren 1.5 by bolus via Gtube at bedtime , Flush with 50 ml of water before and after feeding via Gtube (this will provide 380 calories, 17 g protein, NO fiber, and total of 290 ml water) -Continue checking Residuals before starting overnight feeds. Hold feeds if residual is 200 ml or more, recheck an hour after and re start feed when residual is 160 ml or less. Contact the doctor for further instructions if residuals are greater than 500 ml. - Monitor weight weekly , notify dietitian if weight is less than 110 lbs for further nutrition recommendations - CHECK urine frequency and color to assess fluid and tolerance MONITOR for constipation /diarrhea/loose stools f/u in 6months, call prior to the appointment for any questions Coding Level of Care Code Nutr Indiv Subseq (55138) Diagnoses Dysphagia R13.10 Time Spent (min) 20
--- OUTSIDE RECORDS SUMMARY | 2025-04-04 13:11 | XMS_ITS | Encounter Summary ---
Author Organization [facility] Address [address] [place] [address] Phone Care Team Providers Care City Letter Carrier Name Role Phone Maine Bajwa MD Primary Care Provider [phone] Pcp, Unknown Primary Care Provider Unavailabl e Pcp, Unknown Primary Care Provider Unavailabl e Maine Bajwa MD Primary Care Provider [phone] Encounter Details Date Type Department Care Team (Late st Contact Info) Description 01/10/2018 Ancillary Orders [facility] [address] [place] [address] Gregorio Banks DO [address] [place] [address] Orthopedics & Sports Medicine, [facility] [place] [address] [email or web address] Left hip pain Social History Tobacco Use Types Packs/Day Years Used Date Smoking Tobacco: Never Smokeless Tobacco: Never Alcohol Use Standard Drinks/Week Comments No 0 (1 standard drink = 0.6 oz pur e alcohol) Sex and Gender Information Value Date Recorded Sex Assigned at Male 11/19/2017 6:32 PM EDT Legal Sex Male 9:36 PM EDT Gender Identity Male 11/19/2017 6:32 PM EDT Sexual Orientation Not on file documented as of this encounter Plan of Treatment Not on file documented as of this encounter Visit Diagnoses Diagnosis Left hip pain Pain in joint, pelvic region and thigh documented in this encounter Additional Health Concerns Infection Onset Date Last Indicated Resolved Time MRSA Comment:Import to add expiration date of 11/14/2021 per Infection Control as part of historical infection status reconciliation 04/30/2008 04/30/2008 11/15/19 1:36 AM EDT CoV-Risk 08/15/2021 08/15/2021 09/01/2021 1:22 AM EST CoV-Exposed Comment:Added per Home Health documentation 12/23/2021 12/23/2021 01/03/2022 1:21 AM E DT CoV-Exposed Comment:Added per Home Health documentation 01/21/2022 01/21/2022 02/01/2022 1:24 AM E DT CoV-Risk 10/13/2023 10/13/2023 10/13/2023 6:28 PM EST COVID-19 10/13/2023 10/13/2023 11/03/2023 1:21 AM EST CoV-Risk 03/19/2025 03/19/2025 03/30/2025 1:21 AM EDT documented as of this encounter Care Teams City Letter Carrier Relationship Specialty Start Date End Date Maine Bajwa MD [email or web address] PCP - General Family Medicine 10/25/17 10/11/23 Pcp, Unknown PCP - General 10/12/23 12/13/24 Pcp, Unknown PCP - General 12/14/24 02/07/25 Maine Bajwa MD [address] [place] [id number] PCP - General Family Medicine 02/08/25 documented as of this encounter Additional Source Comments The information contained in this document represents components of the legal health record. It is not the complete legal health record.[facility]
== END 2025-04-04 13:08 | disposition home or self-care (01) ==
LOC: HO.ENCR 13:08
PROVIDERS: PCP Family Medicine; Visit Provider Dietitian, Registered
DX: R13.10 Dysphagia, unspecified (principal)

== ENCOUNTER → 2025-04-04 13:08 | Outpatient (BNVA) | payer MEDICARE, MEDICAID, SELFPAY | PROVIDERS: PCP Family Medicine; Visit Provider Dietitian, Registered | DX: R13.10 Dysphagia, unspecified (principal) | CPT/HCPCS: 97803 ==